=== PATIENT | female | born 1965 | race Caucasian/White ===

== ENCOUNTER 2023-08-27 10:36 | Outpatient (CLI) | payer MEDICARE, OTHER ==
[2023-08-27] MEDS ORDERED: Magnevist 469MG/ML 20 ML VIAL ONE (12:37)
== END 2023-08-27 10:37 | disposition home or self-care (01) ==
LOC: CSHMRI 10:36
PROVIDERS: ATTEND Surgery
DX: C71.9 Malignant neoplasm of brain, unspecified (principal); G93.9 Disorder of brain, unspecified
CPT/HCPCS: 70553; A9579